=== PATIENT | male | born 1965 | race Caucasian/White ===

== ENCOUNTER → 2019-01-29 | Outpatient (CLI) | payer BC ==
--- NOTE | 2019-02-05 18:22 | MR ---
EXAMINATION TYPE: MR pelvis wo/w con DATE OF EXAM: 02/04/2019 COMPARISON: None HISTORY: Peyronie's disease CONTRAST: Standard multiplanar, multisequence MRI of the pelvis/penis was performed departmental protocol utili zing 11 mL intravenous Gadavist gadolinium contrast. FINDINGS: There are extensive bilateral plaque of the mid to distal corpus cavernosa demonstrated as T2 hypoint ense signal elongated along the lateral corpus cavernosum bilaterally. There is greater extent in thi ckness on the left than right. Overall greatest dimension along the longitudinal sagittal axis of the penis measures approximately 7.5 cm on the left and 7 cm on the right. The transverse dimension genoveva ures 0.8 cm bilaterally such as on axial T2 fat sat image 30 and measures approximately 0.8 cm in barrel scraper niocaudal dimension on the left and 0.5 cm on the right. There is somewhat reticular pattern of this indents midportion such as on axial T2 fat sat image 29 on the left with intervening normal tissue. T hese plaques demonstrate heterogenous and mild peripheral enhancement but predominantly appear T1 and T2 hypointense. The posterior base of the penis is not involved. The fibrotic plaques become more ex tensive and nearly circumferential distally. Urinary bladder demonstrates circumferential urinary bladder wall thickening likely due to incomplete distention. Trace hydroceles are seen bilaterally. Mildly enlarged right inguinal lymph node measure s 1.3 cm in short axis in the superficial inguinal region. Bone marrow signal appears decreased on T2 series 301 image 13 sagittal nonfat sat small field of view within the lumbosacral junction and uppe r sacral segments. Some linear heterogeneity with wedge-shaped decreased T2 areas are seen within the prostate gland indicative of prior bandlike scarring and/or prior prostatitis. Mild well-circumscrib ed heterogenous rounded lesions are seen within the central zone of the prostate gland indicative of mild degree benign prostatic hyperplasia. IMPRESSION: 1. Extensive bilateral plaques of the mid to distal corpus cavernosum measuring approximately 7.5 x 0 .8 x 0.8 cm on the left and 7.0 x 0.8 x 0.5 cm on the right within the mid penile shaft. Proximal bas e of the penis appears uninvolved and the plastic, more extensive distally. 2. Mildly enlarged solitary right superficial inguinal lymph node measuring 1.3 cm in short axis. 3. Heterogenous but diminished bone marrow signal of the lumbosacral spine. Correlate with CBC to exc lude anemia. This can also be seen in chronic metabolic disease, lymphoproliferative disease or less likely diffuse metastasis. MRI of the lumbar spine could further evaluate bone marrow or nuclear medi cine bone scan. 4. Findings suggestive of mild degree benign prostatic hyperplasia. 5. Bandlike areas of fibrosis within the peripheral zone of the prostate gland suggesting prior prost atitis
== END | disposition home or self-care (01) ==
LOC: RADMRIMAIN 08:13
PROVIDERS: ATTEND Urology
DX: R59.0 Localized enlarged lymph nodes (principal); N48.6 Induration penis plastica
CPT/HCPCS: 72197

== ENCOUNTER → 2019-10-21 | Outpatient (CLI) | payer BC ==
--- NOTE | 2019-10-21 11:40 | XR ---
EXAMINATION TYPE: XR chest 2V DATE OF EXAM: 10/21/2019 COMPARISON: NONE TECHNIQUE: PA and lateral views submitted. HISTORY: Preop cervical spine surgery FINDINGS: The lungs are clear and there is no pneumothorax, pleural effusion, or focal pneumonia. Hypertrophi c and degenerative change of the spine. No overt failure. Biapical pleural thickening. IMPRESSION: 1. No acute process.
== END | disposition home or self-care (01) ==
LOC: RADXRYALE 11:11
PROVIDERS: ATTEND Neurological Surgery
DX: I10 Essential (primary) hypertension (principal); M54.12 Radiculopathy, cervical region; M50.122 Cervical disc disorder at C5-C6 level with radiculopathy; M50.123 Cervical disc disorder at C6-C7 level with radiculopathy
CPT/HCPCS: 71046

== ENCOUNTER → 2019-10-22 | Outpatient (CLI) | payer BC ==
[2019-10-22 07:32] LABS: Appearance,Urine Clear (Clear); Basophils % (A) 1 %; Bilirubin,Urine Negative (Negative); Blood,Urine Negative (Negative); Color,Urine Light Yellow; Eosinophils # (A) 0.2 k/uL (0-0.7); Eosinophils % (A) 5 %; Glucose,Urine (UA) Negative (Negative); HCT 48.7 % (39.0-53.0); Ketones,Urine Negative (Negative); Leukocyte Esterase,Urine Negative (Negative); Lymphocytes # (A) 1.1 k/uL (1.0-4.8); Lymphocytes % (A) 27 %; MCH 32.2 pg (25.0-35.0); MCHC 32.9 g/dL (31.0-37.0); MCV 97.8 fL (80.0-100.0); Mean Platelet Volume 7.2; Monocytes # (A) 0.4 k/uL (0-1.0); Monocytes % (A) 9 %; Neutrophils # (A) 2.3 k/uL (1.3-7.7); Neutrophils % (A) 54 %; Nitrite,Urine Negative (Negative); Platelet Count 166 k/uL (150-450); Protein,Urine Negative (Negative); RBC 4.98 m/uL (4.30-5.90); Specific Gravity,Urine 1.005 (1.001-1.035); Urobilinogen,Urine <2.0 mg/dL (<2.0); WBC 4.2 k/uL (3.8-10.6)
[2019-10-22 07:39] LABS: INR 1.1 (<1.2); Partial Thromboplastin Time 23.9 sec (22.0-30.0); Prothrombin Time 11.4 sec (9.0-12.0)
[2019-10-22 12:15] LABS: Albumin 4.5 g/dL (3.80-4.90); Albumin/Globulin Ratio 2.5 (1.60-3.17); Anion Gap 9.1 mmol/L (4.00-12.00); BUN/Creat Ratio 11.67 Ratio (12.00-20.00); Calcium 9.4 mg/dL (8.7-10.3); Carbon Dioxide 27.9 mmol/L (21.6-31.8); Chol/HDL Ratio 4.1; Globulin 1.8 g/dL (1.6-3.3); LDL Cholesterol,Calculated 123.8 mg/dL (0.0-131.0); Non-African American GFR(CKD) 68.1 (60.0-200.0); Total Protein 6.3 g/dL (6.2-8.2); VLDL Calculation 25.2 mg/dL (5.00-40.00)
== END | disposition home or self-care (01) ==
LOC: LABWHC1 06:54
PROVIDERS: ATTEND Internal Medicine
DX: Z01.812 Encounter for preprocedural laboratory examination (principal); I10 Essential (primary) hypertension; Z13.220 Encounter for screening for lipoid disorders; M50.122 Cervical disc disorder at C5-C6 level with radiculopathy
CPT/HCPCS: 36415; 80053; 80061; 81003; 85025; 85610; 85730; 86850; 86900; 86901; 87070

== ENCOUNTER → 2019-12-21 | Outpatient (CLI) | payer BC ==
--- NOTE | 2019-12-21 11:25 | XR ---
Cervical spine with flexion and extension views HISTORY: 8 week postop, M 50.122, M 54.12, M50.123 6 views of the cervical spine No comparisons Patient is status post anterior cervical fusion and discectomy at C5-6. Minimal anterolisthesis grade 1 C2-3, C3-4, C6-7. Loss of disc height present at C6-7. There is associated spondylosis at C3-4, C6 -7. Slight slip, normalized alignment on extension view at or as compared to flexion view. Otherwise no significant change in alignment. Cervical vertebral bodies show preserved height and bone minerali zation. Lateral extension of endplates at C5-6 causes foraminal encroachment bilaterally. No odontoid view. IMPRESSION: Neurosurgical follow-up.
== END | disposition home or self-care (01) ==
LOC: RADXRYALE 09:20
PROVIDERS: ATTEND Neurological Surgery
DX: M50.122 Cervical disc disorder at C5-C6 level with radiculopathy (principal); M50.123 Cervical disc disorder at C6-C7 level with radiculopathy; I10 Essential (primary) hypertension
CPT/HCPCS: 72052

== ENCOUNTER → 2020-08-15 | Outpatient (CLI) | payer BC ==
--- NOTE | 2020-08-15 14:29 | MR ---
"EXAMINATION TYPE: MR knee LT wo con DATE OF EXAM: 08/15/2020 COMPARISON: Outside left knee x-ray July 21, 2020 HISTORY: Left Knee Pain. Kneecap, behind the knee, Swelling x 18months. No improvement. TECHNIQUE: Multiplanar, multisequence imaging of the left knee is performed without IV contrast. FINDINGS: MEDIAL MENISCUS: Horizontal signal in the anterior horn medial meniscus is present, this extends to t he central body of the posterior horn where there is more irregular signal and fraying along the supe rior margin. LATERAL MENISCUS: Anterior and posterior horns are intact without tear. CRUCIATE LIGAMENTS: The anterior and posterior cruciate ligaments are intact and unremarkable. COLLATERAL LIGAMENTS: The medial collateral ligament and lateral collateral ligament complex are inta ct and unremarkable. EXTENSOR MECHANISM: Visualized quadriceps and patellar tendons are intact. Anterior to the distal pat ellar tendon there is oval 2.7 x 0.8 cm x 2.9 cm transverse focal thin-walled fluid collection of low T1 and increased T2 signal, in region of the tibial tuberosity. Low dense rounded signal is present. EFFUSION: Small suprapatellar joint effusion. POPLITEAL CYST: Small popliteal/leon cyst. TRICOMPARTMENT SPACES: Moderate narrowing medial tibiofemoral and patellofemoral compartments. Mild-t o-moderate spurring patellofemoral compartment. Additional [id number] narrowing medial and late ral tibiofemoral compartments. CARTILAGE: Thinning of articular cartilage medial tibiofemoral compartment. No significant chondromal acia patella. BONE MARROW SIGNAL: Focus of diminished T1 and increased T2 signal medial aspect medial tibial platea u measuring roughly 1.4 cm AP by 1.4 cm transversely. Additional focal subchondral cyst anterior to t he medial tibial plateau sagittal image 20 and axial image 11. OTHER: Some ill-defined edema in the posterior popliteal region extending into the medial leg muscle s below knee joint. Tubular shaped density at the structure with suggestion of some filling defects i n the popliteal vessels extending into the proximal calf vessels. IMPRESSION: 1. Fairly moderate tricompartment degenerative changes as detailed above. 2. Intrasubstance tearing anterior horn and central body medial meniscus. Full-thickness tear suspect ed posterior horn of medial meniscus. 3. Small suprapatellar joint effusion. 4. Small popliteal cyst. 5. Focal bursitis in the region of the anterior tibial tuberosity with evidence of chronic synovitis at this level. 6. Focal osseous contusion and/or abnormal bone marrow edema involving the medial aspect of the media l tibial plateau. 7. Abnormal findings posterior tissue, acute DVT with reactive muscular edema needs to be excluded. S train injury to muscles could also have this appearance. Advise ultrasound follow-up. A Yellow level critical message alert has been initiated for Sarbjit Calix [id number] via the [employer] | Critical Results System on 08/15/2020 2:27 PM. This message alert has been sent to Ralf Calix [id number] via the preferences provided by the clinician for the receipt of Radiology C ritical Findings. Message ID [id number]."
== END | disposition home or self-care (01) ==
LOC: RADMRIMAIN 07:16
PROVIDERS: ATTEND Orthopaedic Surgery
DX: M17.12 Unilateral primary osteoarthritis, left knee (principal); S83.242A Other tear of medial meniscus, current injury, left knee, initial encounter; M71.22 Synovial cyst of popliteal space [Baker], left knee; M71.562 Other bursitis, not elsewhere classified, left knee

== ENCOUNTER 2020-08-21 09:52 | Emergency (ER) | payer BC ==
[2020-08-21 10:04] VITALS: RESP 18
--- NOTE | 2020-08-21 10:24 | ED ---
General Adult HPI - General Chief complaint: Extremity Problem,Nontraumatic Stated complaint: DVT - sent by ultrasound Time Seen by Provider: 08/21/20 10:11 Source: patient Mode of arrival: wheelchair Limitations: no limitations - History of Present Illness Initial comments: Dictation was produced using [employer] dictation software. please excuse any grammatical, word or spelling errors. This patient was cared for during a federal and state declared state of emergency secondary to Covid 19 Chief Complaint: 54-year-old male past medical history of hypertension and left knee pain presents today with positive DVT on outpatient ultrasound History of Present Illness:-year-old male he was evaluated bit on outpatient basis by orthopedic surgery. Patient had MRI of the left knee and MRI incidentally showed a left DVT. He was sent to ultrasound today when the results came back positive for popliteal DVT. He was redirected to the em ergency department. She states that they traveled to [place] in July when he started to feel like perhaps maybe symptoms started then. At that time he was experiencing left lower extremity pain. Patient states he had at that time pain behind the left knee that improved with ambulation. He did have an episode of shortness of breath recently. At rest he does not feel any dyspnea or chest pain at the moment. The ROS documented in this emergency department record has been reviewed and con firmed by me. Those systems with pertinent positive or negative responses have been documented in the HPI. All other systems are other negative and/or noncontributory. PHYSICAL EXAM: General Impression: Alert and oriented x3, not in acute distress HEENT: Normocephalic atraumatic, extra-ocular movements intact, pupils equal and reactive to light bilaterally, mucous membranes moist. Cardiovascular: Heart regular rate and rhythm Chest: Able to complete full sentences, no retractions, no tachypnea Abdomen: abdomen soft, non-tender, non-distended, no organomegaly Musculoskeletal: Pulses present and equal in all extremities, no peripheral edema Motor: no focal deficits noted Neurological: CN II-XII grossly intact, no focal motor or sensory deficits noted Skin: Intact with no visualized rashes Psych: Normal affect and mood ED course: 54-year-old male presents with positive ultrasound of the left lower extremity showing popliteal DVT. Patient is not have any groin pain or pelvic pain. Vital signs upon arrival are within acceptable limits. There is suspicion that patient's DVT and during a recent trip from [place]. Laboratory evaluation obtained. CBC unremarkable. Coag panel is unremarkable. Metabolic panel is negative. Troponin level. CT angios the chest shows bilateral lower lobe pulmonary emboli. Patient started on eliquis. disposition options were discussed with patient. Patient be admitted observation for cardiac monitoring. He does appear to be well-appearing at this time. Patient is agreeable to disposition. Patient be admitted to [facility] hospitalist group. - Related Data Home Medications Medication Instructions Recorded Confirmed Loratadine [Claritin] 10 mg PO DAILY 08/21/20 08/21/20 Vitamin B Complex 1 cap PO DAILY 08/21/20 08/21/20 Vitamin E 100 unit PO DAILY 08/21/20 08/21/20 amLODIPine [Norvasc] 5 mg PO DAILY 08/21/20 08/21/20 Allergies Allergy/AdvReac Type Severity Reaction Status Date / Time No Known Allergies Allergy Verified 08/21/20 11:30 Review of Systems ROS Statement: Those systems with pertinent positive or pertinent negative responses have been documented in the HPI. ROS Other: All systems not noted in ROS Statement are negative. Past Medical History Past Medical History: Hypertension History of Any Multi-Drug Resistant Organisms: None Reported Past Surgical History: Orthopedic Surgery Additional Past Surgical History / Comment(s): left knee and neck Past Psychological History: No Psychological Hx Reported Smoking Status: Never smoker Past Alcohol Use History: Occasional Past Drug Use History: None Reported General Exam Limitations: no limitations Course Vital Signs 08/21/20 10:02 Temperature 98.4 F Pulse Rate 61 Respiratory 18 Rate Blood Pressure 169/100 O2 Sat by Pulse 98 Oximetry Medical Decision Making - Lab Data Result diagrams: 08/21/20 10:26 08/21/20 10:26 Lab Results 08/21/20 08/21/20 08/21/20 Range/Units 10:26 10:26 10:26 WBC 4.1 (3.8-10.6) k/uL RBC 4.89 (4.30-5.90) m/uL Hgb 16.2 (13.0-17.5) gm/dL Hct 47.2 (39.0-53.0) % MCV 96.6 (80.0-100.0) fL MCH 33.1 (25.0-35.0) pg MCHC 34.2 (31.0-37.0) g/dL RDW 11.9 (11.5-15.5) % Plt Count 203 (150-450) k/uL MPV 7.5 Neutrophils % 58 % Lymphocytes % 26 % Monocytes % 8 % Eosinophils % 4 % Basophils % 1 % Neutrophils # 2.3 (1.3-7.7) k/uL Lymphocytes # 1.1 (1.0-4.8) k/uL Monocytes # 0.3 (0-1.0) k/uL Eosinophils # 0.2 (0-0.7) k/uL Basophils # 0.0 (0-0.2) k/uL PT 10.9 (9.0-12.0) sec INR 1.1 (<1.2) APTT 24.9 (22.0-30.0) sec Sodium 138 (137-145) mmol/L Potassium 4.3 (3.5-5.1) mmol/L Chloride 106 (98-107) mmol/L Carbon Dioxide 27 (22-30) mmol/L Anion Gap 5 mmol/L BUN 13 (9-20) mg/dL Creatinine 1.06 (0.66-1.25) mg/dL Est GFR (CKD-EPI)AfAm >90 (>60 ml/min/1.73 sqM) Est GFR (CKD-EPI)NonAf 80 (>60 ml/min/1.73 sqM) Glucose 92 (74-99) mg/dL Calcium 9.5 (8.4-10.2) mg/dL Disposition Clinical Impression: Pulmonary emboli Disposition: ADMITTED IP TO THIS [facility] Condition: Fair Referrals: Patrizia Cerna MD [Primary Care Provider] - 1-2 days Decision Time: 11:53
[2020-08-21 10:47] LABS: Basophils % (A) 1 %; Eosinophils # (A) 0.2 k/uL (0-0.7); Eosinophils % (A) 4 %; HCT 47.2 % (39.0-53.0); HGB 16.2 gm/dL (13.0-17.5); Lymphocytes # (A) 1.1 k/uL (1.0-4.8); Lymphocytes % (A) 26 %; MCH 33.1 pg (25.0-35.0); MCHC 34.2 g/dL (31.0-37.0); MCV 96.6 fL (80.0-100.0); Mean Platelet Volume 7.5; Monocytes # (A) 0.3 k/uL (0-1.0); Monocytes % (A) 8 %; Neutrophils # (A) 2.3 k/uL (1.3-7.7); Neutrophils % (A) 58 %; Platelet Count 203 k/uL (150-450); RBC 4.89 m/uL (4.30-5.90); RDW 11.9 % (11.5-15.5); WBC 4.1 k/uL (3.8-10.6)
[2020-08-21 10:56] LABS: INR 1.1 (<1.2); Partial Thromboplastin Time 24.9 sec (22.0-30.0); Prothrombin Time 10.9 sec (9.0-12.0)
[2020-08-21 10:58] LABS: African American GFR (CKD) >90 (>60 ml/min/1.73 sqM); Anion Gap 5 mmol/L; Blood Urea Nitrogen 13 mg/dL (9-20); Calcium 9.5 mg/dL (8.4-10.2); Carbon Dioxide 27 mmol/L (22-30); Chloride 106 mmol/L (98-107); Glucose 92 mg/dL (74-99); Non-African American GFR(CKD) 80 (>60 ml/min/1.73 sqM); Potassium 4.3 mmol/L (3.5-5.1); Sodium 138 mmol/L (137-145)
--- NOTE | 2020-08-21 11:20 | CT ---
EXAMINATION TYPE: CT angio chest DATE OF EXAM: 08/21/2020 COMPARISON: None HISTORY: denies chest complaints, US today positive for DVT CT DLP: 599.7 mGycm CONTRAST: CT chest with contrast and 3D reconstruction with MIP imaging is performed with IV Contrast, patient injected with 100 mL of Isovue 370. Contrast-enhanced CT of the chest was performed through the course of the pulmonary arteries with rolando g and mediastinal window settings submitted. 3D reconstruction with MIP imaging was also performed. PULMONARY ARTERIES: There is thrombus within first second and third order lower lobe pulmonary arteri al branches compatible with pulmonary embolism. No upper lobe filling defects are seen. No evidence f or thrombus within the main pulmonary arteries or sagittal component. LUNGS: The lungs are clear and free of infiltrate. No evidence for atelectasis. No pulmonary nodule or mass is detected. No pleural effusion. MEDIASTINUM: Thoracic aorta is of normal caliber,however, evaluation is limited given timing of the contrast bolus. If there is concern for thoracic aortic pathology consider JAMES. Correlate clinicall y . The heart is not enlarged. No evidence for mediastinal mass. No mediastinal lymph nodes greater than 1cm. HILAR STRUCTURES: No evidence for mass. No hilar lymph nodes greater than 1 cm. UPPER ABDOMEN: No significant abnormality is seen. IMPRESSION: 1. Bilateral lower lobe pulmonary embolism.
[2020-08-21] MEDS ORDERED: NALOXONE 0.4 MG/ML 1 ML VIAL IV PRN (11:54)
[2020-08-21] MEDS ORDERED: APIXABAN 5 MG TAB PO SCH (12:00)
[2020-08-21] MEDS ORDERED: SODIUM CHLORIDE 0.9% 1,000 ML IV SCH (12:00)
--- NOTE | 2020-08-21 14:41 | P.HPIM ---
History of Present Illness Patient is a 54-year-old the male is being admitted for DVT and PE. Patient the was seen by [facility] surgeon because of her pain in the left leg had an MRI which was suspicious for clot because of which patient had an ultrasound which showed a popliteal DVT in the left side patient was sent to ER and patient is found to have bilateral PE. Patient denied any shortness of breath patient denied any chest pain. Patient is presently not hypoxic. Patient the labs are within normal limits patient troponin is not elevated at this time. Patient's symptoms started after his travel to [place] which is a long drive via [place]. Patient had this pain since then. Review of Systems REVIEW OF SYSTEMS: CONSTITUTIONAL: No fever, no malaise, no fatigue. HEENT: No recent visual problems or hearing problems. Denied any sore throat. CARDIOVASCULAR: No chest pain, orthopnea, PND, no palpitations, no syncope. PULMONARY: No shortness of breath, no cough, no hemoptysis. GASTROINTESTINAL: No diarrhea, no nausea, no vomiting, no abdominal pain. NEUROLOGICAL: No headaches, no weakness, no numbness. HEMATOLOGICAL: Denies any bleeding or petechiae. GENITOURINARY: Denies any burning micturition, frequency, or urgency. MUSCULOSKELETAL/RHEUMATOLOGICAL: Denies any joint pain, swelling, or any muscle pain. ENDOCRINE: Denies any polyuria or polydipsia. The rest of the 14-point review of systems is negative. Past Medical History Past Medical History: Hypertension History of Any Multi-Drug Resistant Organisms: None Reported Past Surgical History: Orthopedic Surgery Additional Past Surgical History / Comment(s): left knee and neck Past Psychological History: No Psychological Hx Reported Smoking Status: Never smoker Past Alcohol Use History: Occasional Past Drug Use History: None Reported Medications and Allergies Home Medications Medication Instructions Recorded Confirmed Type Loratadine [Claritin] 10 mg PO DAILY 08/21/20 08/21/20 History Vitamin B Complex 1 cap PO DAILY 08/21/20 08/21/20 History Vitamin E 100 unit PO DAILY 08/21/20 08/21/20 History amLODIPine [Norvasc] 5 mg PO DAILY 08/21/20 08/21/20 History Allergies Allergy/AdvReac Type Severity Reaction Status Date / Time No Known Allergies Allergy Verified 08/21/20 11:30 Physical Exam Vitals: Vital Signs Temp Pulse Resp BP Pulse Ox 08/21/20 12:38 98 18 165/98 98 08/21/20 10:02 98.4 F 61 18 169/100 98 Intake and Output 08/20/20 08/21/20 08/21/20 22:59 06:59 14:59 Other: Weight 111.13 kg PHYSICAL EXAMINATION: GENERAL: The patient is alert and oriented x3, not in any acute distress. Well developed, well nourished. HEENT: Pupils are round and equally reacting to light. EOMI. No scleral icterus. No conjunctival pallor. Normocephalic, atraumatic. No pharyngeal erythema. No thyromegaly. CARDIOVASCULAR: S1 and S2 present. No murmurs, rubs, or gallops. PULMONARY: Chest is clear to auscultation, no wheezing or crackles. ABDOMEN: Soft, nontender, nondistended, normoactive bowel sounds. No palpable organomegaly. MUSCULOSKELETAL: No joint swelling or deformity. EXTREMITIES: No cyanosis, clubbing, or pedal edema. NEUROLOGICAL: Gross neurological examination did not reveal any focal deficits. SKIN: No rashes. Results CBC & Chem 7: 08/21/20 10:26 08/21/20 10:26 Assessment and Plan Plan: -Bilateral pulmonary embolism. Patient labs consistent with low risk PE it up a as patient is a symptomatically patient will be discharged today on oral anticoagulation with Eliquis for verification of his approval from the insurance company. Patient's DVT secondary to his long drive patient will need to cont inue this anti-correlation for 3-6 months after which patient will need pro- coagulation workup. -Hypertension: Continue with amlodipine.
--- NOTE | 2020-08-21 14:41 | P.DS ---
Providers Primary care physician: Patrizia Cerna Hospital Course: Please refer to my history of present illness further details Patient Condition at Discharge: Fair Plan - Discharge Summary New Discharge Prescriptions: New Apixaban [Eliquis Starter Pack (for VTE)] 0 mg PO DIRECTED 30 Days #1 pack Continue amLODIPine [Norvasc] 5 mg PO DAILY Loratadine [Claritin] 10 mg PO DAILY Vitamin E 100 unit PO DAILY Vitamin B Complex 1 cap PO DAILY Discharge Medication List Apixaban [Eliquis Starter Pack (for VTE)] 0 mg PO DIRECTED 30 Days #1 pack 08/21/20 [Rx] Loratadine [Claritin] 10 mg PO DAILY 08/21/20 [History] Vitamin B Complex 1 cap PO DAILY 08/21/20 [History] Vitamin E 100 unit PO DAILY 08/21/20 [History] amLODIPine [Norvasc] 5 mg PO DAILY 08/21/20 [History] Follow up Appointment(s)/Referral(s): Patrizia Cerna MD [Primary Care Provider] - 1-2 days Patient Instructions/Handouts: Deep Vein Thrombosis (ED) Discharge Disposition: ADMITTED IP TO THIS HOSP
[2020-08-21 14:52] VITALS: BP 135/91; PULSE 70; TEMP 98.3
== END 2020-08-21 14:54 | disposition home or self-care (01) ==
LOC: EC 09:52
DX: I26.99 Other pulmonary embolism without acute cor pulmonale (principal); I10 Essential (primary) hypertension; Z79.899 Other long term (current) drug therapy
CPT/HCPCS: 36415; 80048; 84484; 85025; 85610; 85730; 71275; 99284; Q9967

== ENCOUNTER → 2020-08-21 | Outpatient (CLI) | payer BC ==
--- NOTE | 2020-08-21 09:49 | US ---
EXAMINATION TYPE: US venous doppler duplex LE LT DATE OF EXAM: 08/21/2020 9:41 AM COMPARISON: NONE CLINICAL HISTORY: M79.662,R22.42 PAIN AND SWELLING IN LT LOWER LIMB. Left leg pain SIDE PERFORMED: Left TECHNIQUE: The lower extremity deep venous system is examined utilizing real time linear array sonog loyda with graded compression, doppler sonography and color-flow sonography. VESSELS IMAGED: Common Femoral Vein Deep Femoral Vein Greater Saphenous Vein * Femoral Vein Popliteal Vein Small Saphenous Vein * Proximal Calf Veins (* superficial vessels) Left Leg: Positive for DVT popliteal vein. Report called to referring clinician. IMPRESSION: 1. Findings are consistent with acute DVT left popliteal vein.
== END | disposition home or self-care (01) ==
LOC: RADUSWWP 09:21
PROVIDERS: ATTEND Orthopaedic Surgery
DX: M79.662 Pain in left lower leg (principal)

== ENCOUNTER 2021-02-28 08:19 | Day surgery (SDC) | payer BC ==
--- NOTE | 2021-02-27 15:43 | HP ---
HISTORY AND PHYSICAL DATE OF SURGERY: 02/28/2021 Jona Wilkins is a 55-year-old gentleman seen with progressive left knee pain. We discussed options for treatment. He elected to proceed with arthroscopy. Consent was obtained. We also elected to proceed with excision of a symptomatic left knee prepatellar bursa along with his arthroscopic surgery. Consent was obtained regarding that as well. PAST MEDICAL HISTORY: Hypertension, gout. PAST SURGICAL HISTORY: Knee surgery and herniorrhaphy. DAILY MEDICATIONS: Norvasc, Eliquis. ALLERGIES: NO KNOWN DRUG ALLERGIES. SOCIAL HISTORY: He denies tobacco use. PHYSICAL EVALUATION OF THE LEFT KNEE: His range of motion is zero to 130. There is a mild effusion. There is prepatellar bursal swelling. Tenderness, medial joint line. Positive medial Perry's. His ligaments are stable. Hip rotation is without pain. Distal neurovascular exam is intact. RADIOGRAPHS: Left knee radiographs revealed moderate osteoarthritis. Left knee MRI revealed a medial meniscal tear. IMPRESSION: 1. Internal derangement of left knee with medial meniscal tear. 2. Left knee symptomatic prepatellar bursitis. 3. Hypertension. 4. Gout. PLAN: 1. Left knee arthroscopy with partial meniscectomy and debridement. 2. Left knee open prepatellar bursectomy. MMODL / IJN: [id number] /
[~2021-02-28 08:19] MED LIST: DEXAMETHASONE SOD PHOSPHATE 4 MG/ML 1 ML VIAL IV ONE; HYDROmorphone 0.5 MG/0.5 ML SYRINGE IVP PRN; LACTATED RINGERS 1,000 ML IV SCH; LIDOCAINE 1% (10MG/ML) FOR IV START INTRADERMA PRN; MIDAZOLAM 2 MG/2 ML VIAL IV PRN
[2021-02-28] MEDS ORDERED: ONDANSETRON 4 MG/2 ML VIAL ONE (08:47)
[2021-02-28] MEDS ORDERED: MIDAZOLAM 2 MG/2 ML VIAL ONE (09:43)
[2021-02-28] MEDS ORDERED: fentaNYL (PF) 50 MCG/ML 2 ML AMP ONE (09:43)
[2021-02-28] MEDS ORDERED: SUCCINYLCHOLINE CHLORIDE 100 MG/5 ML SYR IV ONE (09:43)
[2021-02-28] MEDS ORDERED: LIDOCAINE 1% INJ 10MG/ML (20 ML MDV) ONE (09:43)
[2021-02-28] MEDS ORDERED: PROPOFOL 10 MG/ML 20 ML VIAL IV ONE (09:43)
[2021-02-28] MEDS ORDERED: BUPIVACAINE (PF) 0.25% 30 ML VIAL SQ ONE ×3 (10:06→10:57)
[2021-02-28 11:11] VITALS: TEMP 96.9
--- NOTE | 2021-02-28 11:14 | P.OP ---
Date of Procedure: 02/28/21 Preoperative Diagnosis: 1. Internal derangement left knee 2. Left knee symptomatic prepatellar bursitis Postoperative Diagnosis: 1. Tear medial meniscus left knee 2. Grade 2 chondromalacia medial femoral condyle left knee 3. Reactive synovitis medial, lateral and suprapatellar compartments left knee 4. Symptomatic prepatellar bursitis left knee Procedure(s) Performed: 1. Arthroscopic partial medial meniscectomy left knee 2. Arthroscopic chondroplasty medial femoral condyle left knee 3. Arthroscopic partial synovectomy medial, lateral and suprapatellar compartments left knee 4. Open bursectomy left knee Anesthesia: JENNY, local Surgeon: Sarbjit Calix Warp Knitting Machine Operator #1: Todd Hull Estimated Blood Loss (ml): 20 Pathology: none sent Condition: stable Disposition: PACU Indications for Procedure: 55-year-old gentleman seen with progressive left knee pain to include symptomatic meniscal tear and symptomatic prepatellar bursitis. After options regarding treatment were discussed he elected to proceed with arthroscopy and open bursectomy left knee. Operative Findings: See description of procedure Description of Procedure: Patient was taken to the operative suite. Patient underwent a general anesthetic by the department of anesthesia. Patient was given preoperative antibiotics. The left lower extremity was placed in a well-padded arthroscopic leg schrader. The left leg was prepped and draped in the normal sterile orthopedic fashion. A lateral parapatellar and suprapatellar incision was made. Trochars were inserted. Arthroscopy was initiated. Suprapatellar pouch revealed diffuse thick reactive synovitis. The patellofemoral joint appeared to articulate congruently. There was grade 1 chondromalacia of the patella. The scope was guided into the medial gutter. No loose bodies or plica were identified. The scope was then guided into the medial compartment. A medial parapatellar incision was made. Trocar inserted followed by probe. There was a complex tear involving the posterior horn of the medial meniscus. There were grade 2 chondromalacia changes of the medial femoral condyle with some osteochondral flap tears present. There was thick reactive synovitis anteriorly. I performed a partial medial meniscectomy getting down to stable meniscal tissue. I performed a chondroplasty of the medial femoral condyle getting down to stable osteochondral tissue. I performed a partial synovectomy decompressing the thick reactive synovitis. The shaver was removed. I reintroduced the probe and noted good stability about the residual meniscus. There was good stability about the residual osteochondral surface of the femoral condyle. There was good decompression of the synovitis. Scope and probe were then guided into the intercondylar notch. Cruciates were identified, probed and found to be stable. The scope and probe were then guided into lateral compartment. The lateral meniscus was probed and found to be stable. There was no significant chondromalacia. There was thick reactive synovitis anteriorly. I introduced a motorized shaver and performed a partial synovectomy. The shaver was removed. There was good decompression of the synovitis. The scope was in guided back into the suprapatellar compartment. I introduced a motorized shaver into the super patellar compartment. I debrided some piecemeal fragments of meniscus I encountered. I performed a partial synovectomy decompressing the reactive synovitis. The shaver was removed. I now took one more look on the entire knee, no residual debris. Instruments were now removed from the joint. I now put a sterile drape underneath the lower extremity and elevated the operating room table to straighten the leg out. I now made a 10 cm incision along the anterior aspect of the knee. I dissected down to the bursa. I now carefully dissected out the thick bursal tissue assistance Todd NICHOLS. This was excised without difficulty. I used electrocautery to achieve hemostasis. I irrigated the wound out. We set our [place] of micro-bleeding. I used some Surgicel Potter which help with that. I now tacked down the subcutaneous tissues to the anterior capsule with 2-0 Vicryl I now with the assistance of Todd NICHOLS repaired the incision with nylon suture. The portal sites were repaired with nylon suture. The joint and the incision air were infiltrated with quarter percent plain Marcaine. Sterile dressings were applied. The patient was placed into a JAYNE hose. No tourniquet was utilized. The patient was awakened, transferred to a bed and taken to recovery stable satisfactory condition. Todd NICHOLS assisted with the open portion of the procedure.
[2021-02-28] MEDS ORDERED: HYDROcodone/APAP 5-325MG 1 EACH TAB ONE (12:03)
[2021-02-28] MEDS ORDERED: HYDROcodone/APAP 5-325MG 1 EACH TAB PO ONE (12:04)
[2021-02-28 12:07] VITALS: BP 137/75; PULSE 56; RESP 18
== END 2021-02-28 13:11 | disposition home or self-care (01) ==
LOC: OR 08:19
PROVIDERS: ATTEND Orthopaedic Surgery
DX: M23.204 Derangement of unspecified medial meniscus due to old tear or injury, left knee (principal); M94.262 Chondromalacia, left knee; M65.862 Other synovitis and tenosynovitis, left lower leg; M23.92 Unspecified internal derangement of left knee; M17.12 Unilateral primary osteoarthritis, left knee; M70.42 Prepatellar bursitis, left knee; I10 Essential (primary) hypertension; M10.9 Gout, unspecified; Z98.890 Other specified postprocedural states; Z79.01 Long term (current) use of anticoagulants; Z79.899 Other long term (current) drug therapy
CPT/HCPCS: 29881; 29876; 27340; J2250; J1100; J0690; J2405; J2001; J3010; J0330; J2704

== ENCOUNTER → 2022-03-01 | Outpatient (CLI) | payer BC ==
[2022-03-01 20:15] LABS: HCT 47.1 % (39.6-50.0); HGB 15.5 g/dL (13.0-17.0); MCHC 32.9 g/dL (32.0-37.0); MCV 97.3 fL (80.0-97.0); Mean Platelet Volume 10.4 fL (9.5-12.2); NRBC Per 100 WBC 0 /100 WBCS (0.0-0.0); Platelet Count 205 X 10*3/uL (140-440); RBC 4.84 X 10*6/uL (4.40-5.60); RDW 12.6 % (11.5-14.5); WBC 4.22 X 10*3/uL (4.50-10.00)
[2022-03-01 20:16] LABS: Immature Platelet Fraction 4.2 % (1.1-6.1); RBC Morphology NORMAL
[2022-03-01 20:26] LABS: Anion Gap 9.9 mmol/L (10.00-18.00); Carbon Dioxide 28.1 mmol/L (20.0-27.5); Potassium 4.6 mmol/L (3.5-5.5)
== END | disposition home or self-care (01) ==
LOC: LABPAT 09:35
PROVIDERS: ATTEND Orthopaedic Surgery
DX: Z01.812 Encounter for preprocedural laboratory examination (principal); M70.22 Olecranon bursitis, left elbow
CPT/HCPCS: 80051; 85027

== ENCOUNTER → 2022-03-05 | Outpatient (CLI) | payer BC | END | disposition home or self-care (01) | LOC: LABPAT 09:32 | PROVIDERS: ATTEND Orthopaedic Surgery | DX: Z01.818 Encounter for other preprocedural examination (principal); I44.0 Atrioventricular block, first degree; M70.22 Olecranon bursitis, left elbow; R94.31 Abnormal electrocardiogram [ECG] [EKG] | CPT/HCPCS: 93005 ==

== ENCOUNTER 2022-03-20 10:14 | Day surgery (SDC) | payer BC ==
--- NOTE | 2022-03-19 14:11 | HP ---
HISTORY AND PHYSICAL DATE OF SURGERY: 03/20/2022 Jona Wilkins is a 56-year-old gentleman seen with a symptomatic left elbow olecranon bursitis. We discussed options for treatment. He elected to proceed with left olecranon bursectomy. Consent was obtained. We obtained cardiac clearance for the procedure. PAST MEDICAL HISTORY: Atrial fibrillation, hypertension, gout. PAST SURGICAL HISTORY: Umbilical herniorrhaphy, left knee arthroscopy. DAILY MEDICATIONS: Eliquis and antihypertensive. ALLERGIES: NONE REPORTED. SOCIAL HISTORY: Noncontributory. PHYSICAL EVALUATION OF LEFT ELBOW: Has a very large olecranon bursa without evidence for infective process. He has full range of motion of the elbow. His ligaments are stable. His distal neurovascular exam is intact. Radiographs of the left elbow revealed no osseous abnormality. IMPRESSION: Left elbow olecranon bursitis. PLAN: Left elbow olecranon bursectomy. MMODL / IJN: [id number] /
[~2022-03-20 10:14] MED LIST changes: -MIDAZOLAM 2 MG/2 ML VIAL IV PRN; +ONDANSETRON 4 MG/2 ML VIAL IVP ONE
[2022-03-20 11:00] VITALS: RESP 16
[2022-03-20] MEDS ORDERED: SUCCINYLCHOLINE CHLORIDE 100 MG/5 ML SYR IV ONE (11:26)
[2022-03-20] MEDS ORDERED: LIDOCAINE 2% INJ 20 MG/ML (2 ML VIAL) ONE (11:26)
[2022-03-20] MEDS ORDERED: MIDAZOLAM 2 MG/2 ML VIAL ONE (11:26)
[2022-03-20] MEDS ORDERED: fentaNYL (PF) 50 MCG/ML 2 ML AMP ONE (11:26)
[2022-03-20] MEDS ORDERED: PROPOFOL 10 MG/ML 20 ML VIAL IV ONE (11:26)
--- NOTE | 2022-03-20 11:57 | P.OP ---
Date of Procedure: 03/20/22 Preoperative Diagnosis: Left elbow olecranon bursitis Postoperative Diagnosis: Left elbow olecranon bursitis Procedure(s) Performed: Left elbow olecranon bursectomy Anesthesia: JENNY, local Surgeon: Sarbjit Calix Technician Trainee #1: Ross Lui Estimated Blood Loss (ml): 3 Pathology: none sent Condition: stable Disposition: PACU Indications for Procedure: 56-year-old gentleman seen with symptomatic left elbow olecranon bursitis. After treatment options were discussed, he elected to proceed with left elbow olecranon bursectomy. Operative Findings: see description of procedure Description of Procedure: Patient was taken to the operative suite. He received preoperative IV antibiotics. He underwent a general anesthetic by the department of anesthesia. A well-padded tourniquet was placed proximal left upper extremity. The left upper extremity was prepped and draped in the normal sterile orthopedic fashion. The extremity was elevated and the tourniquet was insufflated to 250. I made a n incision sharply over the area of the olecranon bursa. I dissected down to the bursa. Tray NICHOLS assisted with the appropriate retracting. I now performed a olecranon bursectomy. I explored the wound we had completely excised olecranon bursa. The wound was irrigated. I repaired the subcutaneous soft tissues were repaired with 2-0 Vicryl. The skin is proximal nylon suture. Sterile dressings were applied followed by Loco bandage. Tourniquet was released with immediate capillary refill noted of the entire extremity. The patient was now awakened and transferred to recovery in stable condition. Tray NICHOLS assisted with the procedure.
[2022-03-20 12:25] VITALS: TEMP 98
[2022-03-20] MEDS ORDERED: HYDROmorphone 0.5 MG/0.5 ML SYRINGE IVP ONE (12:30)
[2022-03-20] MEDS ORDERED: HYDROcodone/APAP 5-325MG 1 EACH TAB PO ONE (13:10)
[2022-03-20] MEDS ORDERED: HYDROcodone/APAP 5-325MG 1 EACH TAB ONE (13:14)
[2022-03-20 13:20] VITALS: BP 142/93; PULSE 51
== END 2022-03-20 13:51 | disposition home or self-care (01) ==
LOC: OR 10:14
PROVIDERS: ATTEND Orthopaedic Surgery
DX: M70.22 Olecranon bursitis, left elbow (principal); I48.91 Unspecified atrial fibrillation; I10 Essential (primary) hypertension; M10.9 Gout, unspecified; Z79.01 Long term (current) use of anticoagulants; Z79.899 Other long term (current) drug therapy; Z86.718 Personal history of other venous thrombosis and embolism; Z86.711 Personal history of pulmonary embolism; Z86.73 Personal history of transient ischemic attack (TIA), and cerebral infarction without residual deficits; Z79.82 Long term (current) use of aspirin
CPT/HCPCS: 24105; J2250; J1100; J0690; J2405; J3010; J0330; J2704; J1170; J2001

== ENCOUNTER → 2023-11-20 | Outpatient (CLI) | payer BC ==
[2023-11-20 16:00] LABS: Albumin 4.3 g/dL (3.8-4.9); Blood Urea Nitrogen 13.2 mg/dL (9.0-27.0); Calcium 9.4 mg/dL (8.7-10.3); Carbon Dioxide 27.1 mmol/L (21.6-31.8); Chloride 104 mmol/L (96-109); Glucose 99 mg/dL (70-110); Potassium 4.3 mmol/L (3.5-5.5); Prostate Specific Antigen 1.14 ng/mL (0.000-3.500); Sodium 141 mmol/L (135-145)
== END | disposition home or self-care (01) ==
LOC: LABWHC1 08:12
PROVIDERS: ATTEND Urology
DX: N52.02 Corporo-venous occlusive erectile dysfunction (principal)
CPT/HCPCS: 36415; 80048; 82040; 84153; 84270; 84403

== ENCOUNTER → 2025-03-30 | Outpatient (CLI) | payer BC | END | disposition home or self-care (01) | LOC: LABWHC1 13:09 | PROVIDERS: ATTEND Internal Medicine | DX: Z53.9 Procedure and treatment not carried out, unspecified reason (principal) ==